=== PATIENT | female | born 1980 | race Caucasian/White ===

== ENCOUNTER 2018-12-02 16:37 | Emergency (ER) | payer BC, OTHER, MEDICAID, SELFPAY ==
--- NOTE | 2018-12-02 16:56 | DI.RAD.S_ITS ---
PROCEDURE: XR ANKLE LT MIN 3V INDICATIONS: pain swelling. TECHNIQUE: 3 views of the ankle were acquired. COMPARISON: None. FINDINGS: Bones: No fractures or dislocations. Ankle mortise is normally aligned. No suspicious bony lesions. Lucent lesion within the calcaneus suggest the presence of a calcaneal cyst or lipoma. Soft tissues: There is mild lateral malleolar soft tissue swelling. No tibiotalar joint effusion. Achilles tendon appears normal. IMPRESSION: 1. Lateral malleolar soft tissue swelling without underlying fracture or dislocation. If pain persists, followup imaging in 5-7 days is recommended to exclude occult fracture. 2. Cystic lucency within the calcaneus suggesting cyst or lipoma. If further characterization is warranted, MRI of the foot could be used. Dictated by: Melodie Garcia M.D. on 12/02/2018 at 17:19 Approved by: Melodie Garcia M.D. on 12/02/2018 at 17:22
[2018-12-02 16:57] VITALS: PULSE 68; RESP 15; O2SAT 99
[2018-12-02 17:51] VITALS: BP 139/46; PULSE 55; RESP 18; TEMP 36.9; O2SAT 100
--- NOTE | 2018-12-02 18:33 | ED.LOWEXIN ---
HPI - Extremity Injury (Lower) <MONSTER QureshiP - Last Filed: 12/02/18 21:57> General Chief Complaint: Extremity Injury, Lower Stated Complaint: LT ANKLE INJURY Time Seen by Provider: 12/02/18 17:24 Source: patient Mode of arrival: wheelchair Limitations: no limitations History of Present Illness HPI Narrative: This is a 38-year-old female, former smoker, who presents with significant other and child with left foot and ankle pain. Patient reports she had skipped last couple of steps on a stairs and accidentally inverted her left foot when she was caring her infant son. She reports she fell pop immediately and is concern for tendon injury. She denies injuring other areas. She reports swelling to left lateral ankle, is able to move her toes in left foot, painful movement of her ankles with up and down motion. She denies tingling or numbness to her left foot. She arrived with her own set of crutches. Related Data Previous Rx's Medication Instructions Recorded buspirone 5 mg tablet 5 mg PO TID #90 tab 10/20/18 fluoxetine 20 mg capsule 40 mg PO DAILY #30 cap 11/22/18 Allergies Allergy/AdvReac Type Severity Reaction Status Date / Time No Known Drug Allergies Allergy Verified 12/02/18 16:57 Review of Systems <Pascual JonesErinHermes [facility] Last Filed: 12/02/18 21:57> Review of Systems Narrative: General: Denies fever, chills, fatigue, malaise, sweats. HEENT: Denies sinus pain, ear pain, sore throat, difficulty swallowing, dizziness. Respiratory: Denies dyspnea, cough, wheezing, hemoptysis, sputum. Cardiovascular: Denies chest pain, palpitations, orthopnea, edema. Gastrointestinal: Denies nausea, vomiting, abdominal pain, diarrhea, constipation, melena. : Denies dysuria, frequency, incontinence, hematuria, urinary retention. Musculoskeletal: See HPI Skin: Denies rash, skin lesions, or other. Neurologic: Denies weakness, headache, numbness, change in speech, confusion, seizures, incoordination. Psychiatric: No concerning psychosocial issues. 12-point review of systems is negative except for those stated above. PFSH <[facility] Last Filed: 12/02/18 21:57> Social History marital status: unmarried,single (partner) number of children: 2 household members: family education level: college occupational status: employed Smoking Status: Former smoker alcohol intake: current (social) substance use type: does not use Social History marital status: unmarried,single (partner) number of children: 2 household members: family education level: college occupational status: employed Smoking Status: Former smoker alcohol intake: current (social) substance use type: does not use Exam <PALMA Qureshi - Last Filed: 12/02/18 21:57> Narrative Exam Narrative: General appearance: well developed, well nourished, in no acute distress. Head: normocephalic, atraumatic, no scalp lesions, non-tender. Eye: pupil equal, round. EOMI. Nose: nares patent. Oral: mucosa moist. Neck/Thyroid: neck supple, full range of motion, no visible masses. Skin: no suspicious rashes, lesions over visible areas. Warm and dry. Heart: no clubbing, no cyanosis, no edema. Lungs: Breathing even and unlabored. No stridor. No accessory muscles used. Chest: normal shape and expansion. Abdomen: non-obese, non-distended. Neurologic: alert and oriented. Cognitive exam, [employer] and PNS grossly intact on informal exam. Psych: good eye contact, normal affect. Initial Vital Signs Initial Vital Signs: Vital Signs Pulse Rate 68 12/02/18 16:57 Respiratory Rate 15 12/02/18 16:57 Pulse Oximetry 99 12/02/18 16:57 Extrem Right upper extremity: normal to inspection and full ROM Left upper extremity: normal to inspection and full ROM Right lower extremity: normal to inspection and full ROM Left lower extremity: ankle Details: abnormal to inspection, swelling Details: laterally and abnormal ROM Details: pain with active ROM, pain with passive ROM and with range as follows (moves toes, painful with elevation and plantar flexion of ankle); no warmth, no abrasions and no ecchymosis and foot Details: normal capillary refill, toes with normal ROM, no edema, vascular exam Details: dorsalis pedis pulse present and motor-sensory exam Details: light-touch normal; no tenderness and no ecchymosis <Sofia Rose DO - Last Filed: 12/03/18 00:47> Initial Vital Signs Initial Vital Signs: Vital Signs Pulse Rate 68 12/02/18 16:57 Respiratory Rate 15 12/02/18 16:57 Pulse Oximetry 99 12/02/18 16:57 Procedures <PALMA Qureshi - Last Filed: 12/02/18 21:57> Orthopedic Splinting/Casting Injury #1: Side: left Lower Extremity Injury Location: ankle Lower Extremity Immobilizer: [employer]Cast Post splinting neuro exam: intact Post splinting vascular exam: intact Placed by: Nursing Additional Comments: Patient and brought in her own set of crutches Course <PALMA Qureshi - Last Filed: 12/02/18 21:57> Orders Ordered: ED Orders 12/02/18 16:56 XR ankle LT min 3V Stat Discontinued Medications Ibuprofen (Advil) 800 mg PO NOW ONE Stop: 12/02/18 18:33 Last Admin: 12/02/18 18:35 Dose: 800 mg Documented by: BTONER Vital Signs Vital signs: Vital Signs - 8 hr 12/02/18 16:57 12/02/18 17:51 12/02/18 19:03 Temperature 98.4 F Pulse Rate 68 55 L Pulse Rate [Left Dorsalis Pedis] 60 Respiratory Rate 15 18 Blood Pressure Blood Pressure [Right Arm] 139/46 L Pulse Oximetry 99 100 12/02/18 19:07 Temperature Pulse Rate 56 L Pulse Rate [Left Dorsalis Pedis] Respiratory Rate 18 Blood Pressure 120/82 Blood Pressure [Right Arm] Pulse Oximetry 100 <Sofia Rose DO - Last Filed: 12/03/18 00:47> Orders Ordered: ED Orders 12/02/18 16:56 XR ankle LT min 3V Stat Discontinued Medications Ibuprofen (Advil) 800 mg PO NOW ONE Stop: 12/02/18 18:33 Last Admin: 12/02/18 18:35 Dose: 800 mg Documented by: BTONER Vital Signs Vital signs: Vital Signs - 8 hr 12/02/18 16:57 12/02/18 17:51 12/02/18 19:03 Temperature 98.4 F Pulse Rate 68 55 L Pulse Rate [Left Dorsalis Pedis] 60 Respiratory Rate 15 18 Blood Pressure Blood Pressure [Right Arm] 139/46 L Pulse Oximetry 99 100 12/02/18 19:07 Temperature Pulse Rate 56 L Pulse Rate [Left Dorsalis Pedis] Respiratory Rate 18 Blood Pressure 120/82 Blood Pressure [Right Arm] Pulse Oximetry 100 [facility] - Extremity Injury (Lower) <PALMA Qureshi - Last Filed: 12/02/18 21:57> Differential Diagnosis Differential diagnosis: Likely ankle sprain and strain, ankle fracture and other (Foot sprain, foot fracture, occult fractures) Medical Records Attestation: I reviewed the patient's medical records. Imaging Data XR- Ankle LT: Radiologist's impression: [address] [address] XRay Report Signed Patient: Honey Sosa#: [id number] : 1980Acct:[id number] Age/Sex: 38 / FDate of Service: 12/02/18 Loc: ED Accession Number: [id number] Procedure: XR ankle LT min 3V Ordering Provider: Lotus Barclay MD PROCEDURE: XR ANKLE LT MIN 3V INDICATIONS: pain swelling. TECHNIQUE: 3 views of the ankle were acquired. COMPARISON: None. FINDINGS: Bones: No fractures or dislocations. Ankle mortise is normally aligned. No suspicious bony lesions. Lucent lesion within the calcaneus suggest the presence of a calcaneal cyst or lipoma. Soft tissues: There is mild lateral malleolar soft tissue swelling. No tibiotalar joint effusion. Achilles tendon appears normal. IMPRESSION: 1. Lateral malleolar soft tissue swelling without underlying fracture or dislocation. If pain persists, followup imaging in 5-7 days is recommended to exclude occult fracture. 2. Cystic lucency within the calcaneus suggesting cyst or lipoma. If further characterization is warranted, MRI of the foot could be used. Dictated by: Melodie Garcia M.D. on 12/02/2018 at 17:19 Approved by: Melodie Garcia M.D. on 12/02/2018 at 17:22 [facility] Narrative Medical decision making narrative: The patient's ankle x-ray on left foot does not show acute findings such as fractures or dislocation. Incidental finding of cyst or lipoma on calcaneus. There was lateral malleolus soft tissue swelling visualized per x-ray and patient had placed on ankle stirrup prefabricated splint for comfort. Patient has her own set of crutches that she brought in to ED. RICE therapy was discussed with patient. Patient advised to take [id number] Tylenol and/or Motrin as needed for discomfort. Patient advised to follow up with her PCP in 2-3 days and if the pain persists longer than 7-10 days for possible further imaging test and re-evaluation. Red flag symptoms were discussed with patient. Patient and significant other agree with treatment plan. No further questions or expressed at this time. Discharge Plan Departure Patient Disposition: Home Clinical Impression: Ankle sprain and strain Discharge Date/Time: 12/02/18 19:07 Instructions: DI for Ankle Sprain Activity Restrictions/Additional Instructions: You have been diagnosed with [left ankle sprain. According to the x-ray test, there is no acute findings such as fractures or dislocation]. What to do: *Take your medications as directed. You could take [id number] Tylenol and or Motrin as needed for pain and inflammation. Please use ?RICE? therapy such as Rest, Ice, Compression/Spliint/Acewrap, and Elevation above the chest level. Ice the area for next 24-48 hrs after the initial injury. Please try to avoid getting swelling to the affected site since this may cause increasing pain. You could use OTC Tylenol and or Ibuprofen as needed for pain. Please monitor for increasing pain, swelling, tingling/numbness, unable to move affected/below the injury site, cool limbs. *Follow up with your primary care provider in 2-3 days, call for an appointment. Let them know you were seen in the ED and that we asked you to be seen in follow up. *Return to ED if you have any new, worsening, or concerning symptoms, such as [tingling, numbness, weakness to the lower limb, chest pain, breathing difficulty, unable to tolerate fluids, any acute concerns]. Prescriptions: No Action buspirone 5 mg tablet 5 mg PO TID Qty: 90 RF: 2 fluoxetine 20 mg capsule 40 mg PO DAILY Qty: 30 RF: 2 Referrals: Raya Srinivasan DO [Primary Care Provider] -
[2018-12-02] MEDS: IBUPROFEN 400 MG TABLET 800 MG PO (18:35)
[2018-12-02 19:03] VITALS: PULSE 60
[2018-12-02 19:07] VITALS: BP 120/82; PULSE 56; RESP 18; O2SAT 100
== END 2018-12-02 19:07 | disposition home or self-care (01) ==
PROVIDERS: Emergency Provider Nurse Practitioner Family; Family Provider Family Medicine; PCP Family Medicine
DX: S93.402A Sprain of unspecified ligament of left ankle, initial encounter (principal); S96.912A Strain of unspecified muscle and tendon at ankle and foot level, left foot, initial encounter
CPT/HCPCS: 29540; 73610; 99283

== ENCOUNTER → 2018-12-09 13:27 | Outpatient (CLI) | payer BC, MEDICAID, SELFPAY ==
--- NOTE | 2018-12-09 13:28 | DI.RAD.S_ITS ---
PROCEDURE: XR ANKLE LT MIN 3V INDICATIONS: left ankle injury TECHNIQUE: 3 views of the ankle were acquired. COMPARISON: [facility], CR, XR ANKLE LT MIN 3V, 12/02/2018, 16:55. FINDINGS: Bones: No fractures or dislocations. Ankle mortise is normally aligned. No suspicious bony lesions. Soft tissues: No tibiotalar joint effusion. Achilles tendon appears normal. IMPRESSION: Normal for age, no trauma found. Dictated by: David Morgan M.D. on 12/09/2018 at 13:51 Approved by: David Morgan M.D. on 12/09/2018 at 13:53
== END ==
PROVIDERS: Family Provider Family Medicine; PCP Family Medicine; Visit Provider Family Medicine
DX: S93.402A Sprain of unspecified ligament of left ankle, initial encounter (principal)
CPT/HCPCS: 73610